=== PATIENT | male | born 1945 | race Caucasian/White ===

== ENCOUNTER 2016-12-26 00:11 | Emergency (ER) | payer MEDICARE ==
[~2016-12-26 00:11] MED LIST: ASPI-351 PO; CARV3125 PO; DIGO125T PO; DIT5 PO; ZOC20 PO; [UNRECOGNIZED DRUG - CODE] PO
[2016-12-26 00:14] VITALS: BP 95/41; PULSE 131; RESP 27; O2SAT 86
--- NOTE | 2016-12-26 00:16 | ED.REPORT ---
HPI-Chest Pain 40 and Over Date of Service Dec 26, 2016 ED Provider: Godfrey Barboza MD Pt is a 71 y.o. male with a hx of pacemaker insertion, TN, DVT, and HTN who presents to the ED via EMS from [facility] with an irregular EKG. Per report pt was originally seen at [facility] for a cough and they noticed EKG changes and decide to transfer him here. Upon arrival to the ED the pt is only complaining of a cough and he denies chest pain. Earlier in the month he was admitted to [facility] for recurrent pneumonia, and was evaluated at [facility] ED on and dx with bronchitis and prescribed azithromycin. Pt presents limited hx due to mental status. Nursing Notes Stated Complaint: COUGH, CHEST PAIN Chief Complaint: Chest Pain Nursing Notes Reviewed: Yes Allergies: Coded Allergies: No Known Allergies (Unverified , 04/25/11) Scheduled Aspirin-Expunged Drug, Do Not Renew! (Aspirin-Expunged Drug, Do Not Renew!) 325 Mg Tablet 325 MG PO DAILY Carvedilol-Expunged Drug, Do Not Renew! (Carvedilol-Expunged Drug, Do Not Renew! ) 3.125 Mg Tablet 3.125 MG PO BID Digoxin-Expunged Drug, Do Not Renew! (Digoxin-Expunged Drug, Do Not Renew!) 125 Mcg Tablet 125 MCG PO DAILY Multivitamins/Iron/Folic Acid (Multi Complete-Iron Tablet) 1 Each Tablet 1 EACH PO DAILY Oxybutynin-Expunged Drug, Do Not Renew! (Ditropan-Expunged Drug, Do Not Renew!) 5 Mg Tablet 5 MG PO DAILY Simvastatin-Expunged Drug, Choose New Med! (Simvastatin-Expunged Drug, Choose New Med!) 20 Mg Tablet 20 MG PO HS General Time Seen by MD: 00:16 Chief Complaint Other (Cough) Hx Obtained From: EMS Unable to Obtain Hx: Patient condition, Mental status Arrived By: Ambulance Sudden in Onset?: No Onset Occurred: Onset unknown Severity: Current: No pain currently Recent Healthcare: Recent hospitalization Similar Sx Previous: Yes Past Medical History Past Medical History Hx of frontal infarct Cardiomegaly Hx of DVT Reports: GERD, Hyperlipidemia, Hypertension Reports: Thyroid disease Past Surgical History Left femur Hip fx Reports: Back/neck surgery, Pacemaker insertion Review of Systems Unable to Obtain ROS Patient condition, Mental status Respiratory: Reports: Non-productive cough Cardiovascular: Denies: Chest pain Complete sys rev & neg: except as marked. Physical Exam Initial Vital Signs Vital Signs (First) Date Time Temp Pulse Resp B/P Pulse Ox O2 Delivery O2 Flow Rate FiO2 12/26/16 00:14 37.8 131 27 95/41 86 Room Air 12/26/16 00:37 4 Initial VS: Reviewed Head / Eyes: Atraumatic, Normocephalic Skin: Warm, Dry, No cyanosis General/Constitutional: Awake, Well hydrated, Well nourished, Not toxic appearing Unable to receive pt history due to mental status. Respiratory / Chest: Atraumatic Tachypneic Popping wheezes, bilaterally Bronchospastic persistant cough Heart Rate / Rhythm: Positive: Tachycardia Abdomen: Atraumatic, No distention Upper Extremity / MS: Inspection NL IO in right shoulder Interpretation & Diagnostics Lab Results Interpretation Result Diagram: 12/26/16 0056 12/26/16 0056 Test 12/26/16 00:56 12/26/16 01:19 White Blood Count 12.7th/mm3 (3.8-10.1) Red Blood Count 4.28mil/mm3 (4.40-5.80) Hemoglobin 13.0g/dL (13.8-17.2) Hematocrit 39.0% (41.0-50.0) Mean Corpuscular Volume 91.1fL (81-100) Mean Corpuscular Hemoglobin 30.4pg (27.0-35.0) Mean Corpuscular Hemoglobin Concent 33.3% (32.0-37.0) Red Cell Distribution Width 13.9% (12.3-15.4) Platelet Count 246bil/L (150-400) Neutrophils (%) (Auto) 86.1% (40-74) Lymphocytes (%) (Auto) 5.0% (14-46) Monocytes (%) (Auto) 7.5% (4-12) Eosinophils (%) (Auto) 1.1% (0-5) Basophils (%) (Auto) 0.1% (0-3) Sodium Level 140mEq/L (134-144) Potassium Level 4.2mEq/L (3.5-5.2) Chloride Level 101mEq/L (97-108) Carbon Dioxide Level 24mmol/L (18-29) Blood Urea Nitrogen 12mg/dL (8-27) Creatinine 0.82mg/dL (0.76-1.27) Estimat Glomerular Filtration Rate 98mL/min (>59) Glucose Level 119mg/dL (60-99) Calcium Level 9.2mg/dL (8.5-10.1) Magnesium Level 2.0mg/dL (1.6-2.6) Total Bilirubin 0.4mg/dL (0.0-1.2) Aspartate Amino Transf (AST/SGOT) 13U/L (0-50) Alanine Aminotransferase (ALT/SGPT) 12U/L (0-44) Alkaline Phosphatase 86U/L (25-160) Troponin T 0.010ug/L (0.0-0.011) Pro-B-Type Natriuretic Peptide 122pg/mL (0-376) Total Protein 6.2g/dL (6.4-8.4) Albumin 3.1g/dL (3.4-5.0) Prothrombin Time 11.6sec (8.1-12.5) Prothromb Time International Ratio 1.08ratio Activated Partial Thromboplast Time 39.7sec (22.8-33.0) Hold Patel Top Tube Received (Received) X-Ray Chest Interpretation Chest Xray Interpretation: IMPRESSION: Right lower lobe pneumonia Interpretation / Wet Read by: Wet read ED physician Re-Eval/Medical Decision Med Decision/Clinical Course 71-year-old with a brain injury, CHF chronically, and recent pneumonia, presents via ambulance as a potential STEMI. Cardiology reviewed the EKG and does not agree there is a STEMI. There appears to be rate related broad complex tachyarrhythmia that was self-limited. Enzymes are negative 2. EKG is nonacute. He does have developing infiltrate in right lower lobe, even compared to earlier today. There is no other focal finding. Discharged to [facility] for admission as originally planned, sooner as no good here. Begun with hospital-acquired pneumonia protocol drugs including vancomycin and Levaquin and Zosyn Source of Hx: Old records Time of Eval: 01:15 Re-Evaluation/Progress Note: Pt rechecked. Family is now present, informed of pt situation. Time of Eval: 03:26 Re-Evaluation/Progress Note: Pt and family notified of transfer to [facility]. They understand and agree with plan. Consultation : Referral / Consult Name: Gilda Foster MD Call Returned at: 03:18 Note: Discussed need for transfer with Dr. Foster of [facility]. They accept transfer to ED. Counseled Regarding: Diagnosis, Lab results, Need for transfer Discharge & Departure Primary Impression: Right lower lobe pneumonia Pneumonia type: due to unspecified organism Qualified Code: J18.9 - Pneumonia, unspecified organism Disposition: Transfer, Acute Care Facility ([facility]) Receiving Hospital: [facility] Transfer Accepted: Yes Transfer Accepted at: 03:18 Transfer Reason: Higher level of care Patient Status: Stable, Stable for transfer Patient Informed: Yes Discharge Condition All VS Reviewed: Yes Condition: Stable Scribe Attestation Portions of this note were transcribed by Rubio Abbott. I, Dr. Barboza personally performed the history, physical exam and medical decision-making; I reviewed and confirmed the accuracy of the information in the transcribed note. Signed by: Donald Holly, 12/26/16 and 0444. copies to: Gilda Foster MD, Christopher W MD Dec 26, 2016 00:16 RUBIO ABBOTT Dec 26, 2016 00:26
[2016-12-26] MEDS ORDERED: 0.9% Sodium Chloride 1,000 ML IV ONE (00:21)
[2016-12-26] MEDS ORDERED: Albuterol-Ipratropium 3 mL Inhalation Solution NEB ONE (00:25)
[2016-12-26 00:37] VITALS: PULSE 120; RESP 24; O2SAT 93
[2016-12-26 01:03] VITALS: BP 101/54; PULSE 118; RESP 21; O2SAT 91
[2016-12-26 01:08] LABS: BASOPHILS % (AUTO) 0.1 % (0-3); EOSINOPHILS % (AUTO) 1.1 % (0-5); MONOCYTES % (AUTO) 7.5 % (4-12); Mean Corpuscular Hemoglobin 30.4 pg (27.0-35.0); Mean Corpuscular Volume 91.1 fL (81-100); NEUTROPHILS % (AUTO) 86.1 % (40-74); Platelet Count 246 bil/L (150-400)
[2016-12-26 01:44] LABS: TROPONIN T 0.01 ug/L (0.0-0.011)
[2016-12-26 01:46] LABS: INR 1.08 ratio
[2016-12-26] MEDS ORDERED: Piperacillin-Tazo 3.375 Gm Inj 3.375 GM in Dextrose 5% Minibag Plus 50 ML IV ONE (01:55)
[2016-12-26] MEDS ORDERED: Vancomycin Dose per Pharmacist XX ONE (01:55)
[2016-12-26] MEDS ORDERED: levoFLOXacin Inj 750 MG in IV Premix 1 EACH IV ONE (01:55)
[2016-12-26] MEDS ORDERED: Vancomycin Inj 1,750 MG in Dextrose 5% 500 ML IV ONE (02:05)
[2016-12-26 02:25] VITALS: BP 88/40; PULSE 107; RESP 23; O2SAT 93
[2016-12-26 04:24] VITALS: BP 106/47; PULSE 106; RESP 25; O2SAT 98
[2016-12-26 05:12] VITALS: BP 103/52; PULSE 104; RESP 17; O2SAT 95
--- NOTE | 2016-12-26 09:19 | DRSVH ---
PROCEDURE: X-RAY CHEST ONE VIEW, PORTABLE ([id number]) INDICATIONS: SHORT OF BREATH, cough TECHNIQUE: One view of the chest was acquired. COMPARISON: [facility], , CHEST 1 VIEW, 12/25/2016, 21:21. [facility], CR, CHEST 1VW (PORTABLE), 04/25/2011, 13:19. FINDINGS: Surgical changes and devices: Stable positioning of left chest AICD. Lower cervical upper thoracic s urgical hardware incompletely visualized. Lungs and pleura: No pleural effusions or pneumothorax. Lungs are clear, and interstitium is promin ent. Mediastinum: Mediastinal contours appear normal. Heart size is normal. Bones and chest wall: No suspicious bony lesions. Overlying soft tissues appear unremarkable. Joanne ral healed left upper posterior-lateral rib fractures redemonstrated. IMPRESSION: Mild interstitial prominence similar to prior examination otherwise no definite acute car diopulmonary process. Dictated by: Kd Espinosa RRA Interpreted: Rubina Mo MD on 12/26/2016 at 9:18 Transcribed by: JAYLON on 12/26/2016 at 9:19 Approved by: Rubina Mo MD, PhD on 12/26/2016 at 10:54
== END 2016-12-26 05:13 | disposition short-term general hospital (02) ==
LOC: SED 00:11
DX: J18.9 Pneumonia, unspecified organism (principal); I10 Essential (primary) hypertension; K52.9 Noninfective gastroenteritis and colitis, unspecified; Z86.79 Personal history of other diseases of the circulatory system; Z86.39 Personal history of other endocrine, nutritional and metabolic disease; Z95.0 Presence of cardiac pacemaker
CPT/HCPCS: 36415; 71010; 80053; 83735; 83880; 84484; 85025; 85610; 85730; 87040; 87077; 87186; 96361; 96365; 96366; 96367; 96368; 99285; J1956; J2543; J3370; J7030; J7060; J7620